=== PATIENT | female | born 1960 | race Hispanic/Latino ===

== ENCOUNTER 2021-06-03 22:39 | Emergency (ER) | payer MEDICAID, OTHER ==
[~2021-06-03] VITALS: Ht 149.9 cm; Wt 98.9 kg
[2021-06-03 23:52] LABS: ALBUMIN 3.8 g/dL (3.5-5.0); BILIRUBIN,TOTAL 0.5 mg/dL (0.2-1.0); CREATININE 0.8 mg/dL (0.5-1.5); POTASSIUM 3.8 mmol/L (3.5-5.1); TOTAL PROTEIN, SERUM 8.5 g/dL (6.0-8.3)
[2021-06-03 23:54] LABS: BASOPHILS % (AUTO) 0.3 % (0.0-5.0); EOSINOPHILS % (AUTO) 0.1 % (0.0-8.0); LYMPHOCYTES % (AUTO) 8.9 % (21.0-51.0); MEAN CORPUSCULAR HEMOGLOBIN 28.3 pg (27.0-33.0); MEAN CORPUSCULAR HGB CONC 33.1 g/dL (32.0-36.0); MEAN CORPUSCULAR VOLUME 85.5 fL (79-99); NEUTROPHILS % (AUTO) 87.3 % (40.0-77.0); PLATELET COUNT (AUTO) 300 K/uL (130-400); RED BLOOD CELL COUNT(AUTO) 4.91 MIL/uL (4.00-5.50); WHITE BLOOD COUNT (AUTO) 13.9 K/uL (4.8-10.8)
[2021-06-03] MEDS ORDERED: KETOROLAC 30MG VIAL (30MG/ML) ONE (23:55)
[2021-06-03] MEDS ORDERED: METOCLOPRAMIDE 10 MG/2 ML VIAL ONE (23:55)
[2021-06-03] MEDS ORDERED: PANTOPRAZOLE 40 MG/VIAL ONE (23:55)
[2021-06-03] MEDS ORDERED: ONDANSETRON 4MG INJ ONE (23:55)
[2021-06-03] MEDS ORDERED: FAMOTIDINE 20MG VIAL IV ONE (23:55)
[2021-06-04] MEDS ORDERED: KETOROLAC 30MG VIAL (30MG/ML) IVP ONE
[2021-06-04] MEDS ORDERED: PANTOPRAZOLE 40 MG/VIAL IVP ONE
[2021-06-04] MEDS ORDERED: METOCLOPRAMIDE 10 MG/2 ML VIAL IVP ONE
[2021-06-04] MEDS ORDERED: FAMOTIDINE 20MG VIAL IV ONE
[2021-06-04] MEDS ORDERED: ONDANSETRON 4MG INJ IVP ONE
[2021-06-04 00:15] LABS: APPEARANCE,URINE Cloudy (CLEAR); BILIRUBIN,URINE Negative (NEGATIVE); COLOR,URINE Yellow (YELLOW); GLUCOSE, URINE (UA) Negative (NEGATIVE); KETONES,URINE 15 mg/dL (NEGATIVE); LEUKOCYTE ESTERASE ,URINE Small (NEGATIVE); NITRATE,URINE Negative (NEGATIVE); OCCULT BLOOD,URINE Negative (NEGATIVE); PROTEIN,URINE Trace mg/dL (NEGATIVE); UROBILINOGEN,URINE 0.2 mg/dL (0.2-1.0)
[2021-06-04 00:26] LABS: BACTERIA,URINE Few /HPF (None Seen); MUCUS,URINE Few LPF (None Seen)
[2021-06-04] MEDS ORDERED: IOHEXOL 350 MG/ML 100ML INFUS..BTL IV ONE (00:53)
[2021-06-04] MEDS ORDERED: 0.9%NACL 1000ML 1,000 ML IV ONE ×2 (03:30)
[2021-06-04] MEDS ORDERED: PANT40TA PO (05:02)
[2021-06-04] MEDS ORDERED: ONDA4TAB10 PO (05:02)
[2021-06-04] MEDS ORDERED: METO-296 PO (05:02)
[2021-06-04] MEDS ORDERED: DICY20TA2 PO (05:02)
[2021-06-04 05:20] VITALS: BP 103/46
== END 2021-06-04 07:05 | disposition home or self-care (01) ==
LOC: EDH 22:39
DX: K80.20 Calculus of gallbladder without cholecystitis without obstruction (principal); E86.9 Volume depletion, unspecified; R11.2 Nausea with vomiting, unspecified; Z79.1 Long term (current) use of non-steroidal anti-inflammatories (NSAID); Z79.899 Other long term (current) drug therapy; Z87.442 Personal history of urinary calculi
CPT/HCPCS: 36415; 71045; 74177; 76705; 80053; 81001; 83690; 84484; 85025; 87088; 93005; 96361; 96374; 96375; 99285; C9113; J1885; J2405; J2765; J3490; J7030 ×2; Q9967